=== PATIENT | female | born 1975 | race Caucasian/White ===

== ENCOUNTER 2016-07-19 21:31 | Emergency (ER) | payer SELFPAY ==
[2016-07-19] MEDS ORDERED: NORCO, ANEXSIA 5/325MG TABLET (HYDROcodone/ACETAMINOPHEN) As Ordered ONE (22:28)
[2016-07-19] MEDS ORDERED: CLINDAMYCIN 150 MG CAP As Ordered ONE (22:29)
--- NOTE | 2016-07-19 22:33 | EDDOCDS ---
Nurse's Notes [facility] Name: Caroline Alexis Age: 40 yrs Sex: Female : 1975 Arrival Date: 07/19/2016 Time: 21:31 Bed I10 / 23 Private MD: [facility] - Adults Diagnosis: Dental caries-likely developing abscess Presentation: 07/19 21:40 Presenting complaint: Patient states: broken tooth on lower left, facial swelling, now [facility] starting to feel numb along jawline, started yesterday. Adult Sepsis Screening: The patient does not have new or worsening altered mentation. Patient's respiratory rate is less than 22. Systolic blood pressure is greater than 100. Patient has a qSOFA score of 0- Negative Sepsis Screen. Suicide/Homicide risk assessment- the patient denies having any suicidal and/or homicidal ideations and does not present with any other emotional, behavioral or mental health complaints. Status: Patient is not a director career services or dependent. Transition of care: patient was not received from another setting of care. 21:40 Acuity: RAJESH Level 4 [facility] 21:40 Method Of Arrival: Walkin/Carried/Asstd [facility] Triage Assessment: 21:46 General: Appears in no apparent distress, Behavior is appropriate for age, cooperative. [facility] Pain: Location: mouth Pain currently is 8 out of 10 on a pain scale. HIV screening NA for this visit Offered previously. Respiratory: Airway is patent Respiratory effort is even, unlabored, Respiratory pattern is regular, symmetrical. Derm: Skin is pink, warm & dry. 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 Tylenol 500 mg Oral tab 2 tabs every 6 hours (Last dose: 07/19/2016 14:00) - PMHx: Asthma; - PSHx: Tubal ligation; Foot surgery x 2; Gastric Bypass; - Social history: Smoking status: Patient states former smoker of tobacco. No barriers to communication noted. - Family history: Not pertinent. - : The pt / caregiver states he / she is not on anticoagulants. Home medication list is obtained from the patient. - Exposure Risk Screening:: None identified. Screenin:30 Screening information is obtained from the patient. Fall risk: No risks identified. slm Assistance ADL's: requires no assistance with activities of daily living. Abuse/DV Screen: The patient / caregiver reports he/she is: not in a situation that causes fear, pain or injury. Nutritional screening: No deficits noted. Advance Directives: Currently, there is no health care proxy. There is no active DNR order. There is no living will. There is no Power of Insurance Account Manager. Advance directive information has not previously been placed in an [facility] medical record. Further advance directive information is declined. home support is adequate. Assessment: 22:30 General: Appears in no apparent distress, Behavior is cooperative. Pain: Location: slm mouth. Derm: Swollen area noted on left jaw. Vital Signs: 21:33 BP 147 / 87; Pulse 82; Resp 18 S; Temp 97.1(O); Pulse Ox 100% on R/A; Weight 97.52 kg gr2 (R); Height 5 ft. 10 in. (177.80 cm) (R); Pain 8/10; 21:33 Body Mass Index 30.85 (97.52 kg, 177.80 cm) gr2 Vitals: 21:33 Log In Time: July 19, 2016 at 21:33. gr2 ED Course: 21:33 Patient visited by Onofre Ortiz. gr2 21:33 [facility] is Private Physician. gr2 21:33 Patient moved to Waiting gr2 21:34 Patient visited by Onofre Ortiz. gr2 21:34 Patient moved to Pre RCE gr2 21:42 Triage Initiated [facility] 21:50 [facility] 21[facility]50 Patient moved to I10 / 23 [facility] 22:03 Patient visited by Petra Marroquin FNP. le 22:03 Patient visited by Petra Marroquin FNP. le 22:15 [facility] is Referral Physician. le 22:31 The patient / caregiver is instructed regarding the plan of care and ED course. Patient slm has correct armband on for positive identification. Bed in low position. Call light in reach. Side rails up X 1. 22:31 No IV's were initiated during this patient's visit. No procedures done that require slm assistance. 22:32 Patient visited by Deborah Medrano LPN. slm Administered Medications: 22:32 Drug: Clindamycin 300 mg [clindamycin 150 mg capsule (2 caps)] Route: PO; mb9 22:32 Drug: HYDROcodone-acetaminophen 1 tabs [hydrocodone 5 mg-acetaminophen 325 mg tablet (1 mb9 tabs)] Route: PO; 22:32 Follow up: Response: Confirmed pt not driving. mb9 Order Results: There are currently no results for this order. Outcome: 22:16 Discharge ordered by Provider. le 22:31 Discharge Assessment: Patient awake, alert and oriented x 3. No cognitive and/or slm functional deficits noted. Patient verbalized understanding of disposition instructions. patient administered narcotics -. The following High Risk Discharge criteria are identified: None. Discharged to home ambulatory. Condition: good. Discharge instructions given to patient, Instructed on discharge instructions, follow up and referral plans. medication usage, Demonstrated understanding of instructions, medications, Pt was receptive of discharge instructions/ teaching. Prescriptions given X 1. No special radiology studies were completed. Property :Personal belongings accompany Pt. 22:32 Discharge Assessment: patient administered narcotics - yes. Pt provided with safe slm discharge. 22:33 Patient left the ED. slm Signatures: Petra Marroquin, SUPERVISOR COIL WINDING SUPERVISOR COIL WINDING Harriet Olmos,RN RN [facility] Onofre Ortiz gr2 Deborah Medrano LPN LPN [facility] Marvin SparksRN RN mb9 MTDD
--- NOTE | 2016-07-21 23:33 | EDDOCDS ---
Physician Documentation [facility] Name: Caroline Alexis Age: 40 yrs Sex: Female : 1975 Arrival Date: 07/19/2016 Time: 21:31 Bed I10 / 23 Private MD: [facility] - Adults Disposition: 07/19 22:21 Critical Care: Critical care not applicable. le Disposition: 07/19/16 22:16 Discharged to Home/Self Care. Impression: Dental caries - likely developing abscess. - Condition is Stable. - Discharge Instructions: Dental Abscess, Dental Pain. - Prescriptions for Clindamycin HCl 300 mg Oral Capsule - take 1 capsule by ORAL route every 8 hours; 30 capsule. - Medication Reconciliation, Local Pharmacy Hours, Dental Referral List form. - Follow up: [facility] - Adults; When: Call to arrange an appointment; Reason: Further pain management if needed. - Problem is new. - Symptoms are unchanged. - Notes: Return to the ED for worsening swelling, especially if unable to open your mouth more than the width of 2 fingers, difficulty swallowing/drooling, difficulty breathing, fever or you have any other concerns Historical: - Allergies: PENICILLINS; Keflex; Motrin; - Home Meds: 1. Tylenol 500 mg Oral tab 2 tabs every 6 hours (Last dose: 07/19/2016 14:00) - PMHx: Asthma; - PSHx: Tubal ligation; Foot surgery x 2; Gastric Bypass; - Social history: Smoking status: Patient states former smoker of tobacco. No barriers to communication noted. - Family history: Not pertinent. - : The pt / caregiver states he / she is not on anticoagulants. Home medication list is obtained from the patient. - Exposure Risk Screening:: None identified. 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 10 in. (177.80 cm) (R); Pain 8/10; 21:33 Body Mass Index 30.85 (97.52 kg, 177.80 cm) gr2 MDM: 22:09 Clindamycin 300 mg PO once ordered. le 22:09 HYDROcodone-acetaminophen 5 mg-325 mg 1 tabs PO once ordered. le 07/20 12:14 T-Sheet-- Draft Copy was scanned into [employer] and attached to record. gb Administered Medications: 07/19 22:32 Drug: Clindamycin 300 mg [clindamycin 150 mg capsule (2 caps)] Route: PO; mb9 22:32 Drug: HYDROcodone-acetaminophen 1 tabs [hydrocodone 5 mg-acetaminophen 325 mg tablet (1 mb9 tabs)] Route: PO; 22:32 Follow up: Response: Confirmed pt not driving. mb9 Signatures: Pao Myrick, Reg Reg Petra Hernandez, MEDICAL LAB DIRECTOR MEDICAL LAB DIRECTOR Harriet Olmos RN RN Deborah Kwan LPN LPN slm Belles, Michael RN mb9 The chart was reviewed and I authenticate all verbal orders and agree with the evaluation and treatment provided.Attachments: 07/20 12:14 T-Sheet-- Draft Copy gb Chart Complete MTDD
--- NOTE | 2016-07-21 23:33 | EDDOCDS ---
Nurse's Notes [facility] Name: Caroline Alexis Age: 40 yrs Sex: Female : 1975 Arrival Date: 07/19/2016 Time: 21:31 Bed I10 / 23 Private MD: [facility] - Adults Diagnosis: Dental caries-likely developing abscess Presentation: 07/19 21:40 Presenting complaint: Patient states: broken tooth on lower left, facial swelling, now [facility] starting to feel numb along jawline, started yesterday. Adult Sepsis Screening: The patient does not have new or worsening altered mentation. Patient's respiratory rate is less than 22. Systolic blood pressure is greater than 100. Patient has a qSOFA score of 0- Negative Sepsis Screen. Suicide/Homicide risk assessment- the patient denies having any suicidal and/or homicidal ideations and does not present with any other emotional, behavioral or mental health complaints. Status: Patient is not a elevator service technician or dependent. Transition of care: patient was not received from another setting of care. 21:40 Acuity: RAJESH Level 4 [facility] 21:40 Method Of Arrival: Walkin/Carried/Asstd [facility] Triage Assessment: 21:46 General: Appears in no apparent distress, Behavior is appropriate for age, cooperative. [facility] Pain: Location: mouth Pain currently is 8 out of 10 on a pain scale. HIV screening NA for this visit Offered previously. Respiratory: Airway is patent Respiratory effort is even, unlabored, Respiratory pattern is regular, symmetrical. Derm: Skin is pink, warm & dry. 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 Tylenol 500 mg Oral tab 2 tabs every 6 hours (Last dose: 07/19/2016 14:00) - PMHx: Asthma; - PSHx: Tubal ligation; Foot surgery x 2; Gastric Bypass; - Social history: Smoking status: Patient states former smoker of tobacco. No barriers to communication noted. - Family history: Not pertinent. - : The pt / caregiver states he / she is not on anticoagulants. Home medication list is obtained from the patient. - Exposure Risk Screening:: None identified. Screenin:30 Screening information is obtained from the patient. Fall risk: No risks identified. slm Assistance ADL's: requires no assistance with activities of daily living. Abuse/DV Screen: The patient / caregiver reports he/she is: not in a situation that causes fear, pain or injury. Nutritional screening: No deficits noted. Advance Directives: Currently, there is no health care proxy. There is no active DNR order. There is no living will. There is no Power of Broker Associate. Advance directive information has not previously been placed in an [facility] medical record. Further advance directive information is declined. home support is adequate. Assessment: 22:30 General: Appears in no apparent distress, Behavior is cooperative. Pain: Location: slm mouth. Derm: Swollen area noted on left jaw. Vital Signs: 21:33 BP 147 / 87; Pulse 82; Resp 18 S; Temp 97.1(O); Pulse Ox 100% on R/A; Weight 97.52 kg gr2 (R); Height 5 ft. 10 in. (177.80 cm) (R); Pain 8/10; 21:33 Body Mass Index 30.85 (97.52 kg, 177.80 cm) gr2 Vitals: 21:33 Log In Time: July 19, 2016 at 21:33. gr2 ED Course: 21:33 Patient visited by Onofre Ortiz. gr2 21:33 [facility] is Private Physician. gr2 21:33 Patient moved to Waiting gr2 21:34 Patient visited by Onofre Ortiz. gr2 21:34 Patient moved to Pre RCE gr2 21:42 Triage Initiated [facility] 21:50 [facility] 21:50 Patient moved to I10 / 23 [facility] 22:03 Patient visited by Petra Marroquin FNP. le 22:03 Patient visited by Petra Marroquin FNP. le 22:15 [facility] is Referral Physician. le 22:31 The patient / caregiver is instructed regarding the plan of care and ED course. Patient slm has correct armband on for positive identification. Bed in low position. Call light in reach. Side rails up X 1. 22:31 No IV's were initiated during this patient's visit. No procedures done that require slm assistance. 22:32 Patient visited by Deborah Medrano LPN. slm 07/20 12:14 T-Sheet-- Draft Copy was scanned into [employer] and attached to record. gb Administered Medications: 07/19 22:32 Drug: Clindamycin 300 mg [clindamycin 150 mg capsule (2 caps)] Route: PO; mb9 22:32 Drug: HYDROcodone-acetaminophen 1 tabs [hydrocodone 5 mg-acetaminophen 325 mg tablet (1 mb9 tabs)] Route: PO; 22:32 Follow up: Response: Confirmed pt not driving. mb9 Order Results: There are currently no results for this order. Outcome: 22:16 Discharge ordered by Provider. le 22:31 Discharge Assessment: Patient awake, alert and oriented x 3. No cognitive and/or slm functional deficits noted. Patient verbalized understanding of disposition instructions. patient administered narcotics -. The following High Risk Discharge criteria are identified: None. Discharged to home ambulatory. Condition: good. Discharge instructions given to patient, Instructed on discharge instructions, follow up and referral plans. medication usage, Demonstrated understanding of instructions, medications, Pt was receptive of discharge instructions/ teaching. Prescriptions given X 1. No special radiology studies were completed. Property :Personal belongings accompany Pt. 22:32 Discharge Assessment: patient administered narcotics - yes. Pt provided with safe slm discharge. 22:33 Patient left the ED. slm Signatures: Pao Myrick, Reg Reg Petra Hernandez, REFRIGERATING ENGINEER HEAD REFRIGERATING ENGINEER HEAD Harriet Olmos,RN RN [facility] Onofre Ortiz gr2 Deborah Medrano LPN LPN Marvin Ham,RN RN mb9 Chart Complete MTDD
--- NOTE | 2016-07-21 23:33 | EDDOCDS ---
[facility]ation [facility] Name: Caroline Alexis Age: 40 yrs Sex: Female : 1975 Arrival Date: 07/19/2016 Time: 21:31 Bed I10 / 23 Private MD: [facility] - Adults Disposition: 07/19 22:21 Critical Care: Critical care not applicable. le Disposition: 07/19/16 22:16 Discharged to Home/Self Care. Impression: Dental caries - likely developing abscess. - Condition is Stable. - Discharge Instructions: Dental Abscess, Dental Pain. - Prescriptions for Clindamycin HCl 300 mg Oral Capsule - take 1 capsule by ORAL route every 8 hours; 30 capsule. - Medication Reconciliation, Local Pharmacy Hours, Dental Referral List form. - Follow up: [facility] - Adults; When: Call to arrange an appointment; Reason: Further pain management if needed. - Problem is new. - Symptoms are unchanged. - Notes: Return to the ED for worsening swelling, especially if unable to open your mouth more than the width of 2 fingers, difficulty swallowing/drooling, difficulty breathing, fever or you have any other concerns Historical: - Allergies: PENICILLINS; Keflex; Motrin; - Home Meds: 1. Tylenol 500 mg Oral tab 2 tabs every 6 hours (Last dose: 07/19/2016 14:00) - PMHx: Asthma; - PSHx: Tubal ligation; Foot surgery x 2; Gastric Bypass; - Social history: Smoking status: Patient states former smoker of tobacco. No barriers to communication noted. - Family history: Not pertinent. - : The pt / caregiver states he / she is not on anticoagulants. Home medication list is obtained from the patient. - Exposure Risk Screening:: None identified. 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 10 in. (177.80 cm) (R); Pain 8/10; 21:33 Body Mass Index 30.85 (97.52 kg, 177.80 cm) gr2 MDM: 22:09 Clindamycin 300 mg PO once ordered. le 22:09 HYDROcodone-acetaminophen 5 mg-325 mg 1 tabs PO once ordered. le 07/20 12:14 T-Sheet-- Draft Copy was scanned into [employer] and attached to record. gb Administered Medications: 07/19 22:32 Drug: Clindamycin 300 mg [clindamycin 150 mg capsule (2 caps)] Route: PO; mb9 22:32 Drug: HYDROcodone-acetaminophen 1 tabs [hydrocodone 5 mg-acetaminophen 325 mg tablet (1 mb9 tabs)] Route: PO; 22:32 Follow up: Response: Confirmed pt not driving. mb9 Signatures: Pao Myrick, Reg Reg Petra Hernandez, OTR TANKER TRUCK DRIVER OTR TANKER TRUCK DRIVER Harriet Olmos RN RN Deborah Kwan LPN LPN slm Belles, Michael RN mb9 The chart was reviewed and I authenticate all verbal orders and agree with the evaluation and treatment provided.Attachments: 07/20 12:14 T-Sheet-- Draft Copy gb Chart Complete MTDD
== END 2016-07-19 22:33 | disposition home or self-care (01) ==
LOC: M ED 21:31
DX: K02.9 Dental caries, unspecified (principal); K04.7 Periapical abscess without sinus; J45.909 Unspecified asthma, uncomplicated; Z98.84 Bariatric surgery status; Z87.891 Personal history of nicotine dependence; Z88.0 Allergy status to penicillin; Z88.5 Allergy status to narcotic agent; Z88.6 Allergy status to analgesic agent

== ENCOUNTER 2016-11-21 14:00 | Emergency (ER) | payer SELFPAY ==
[~2016-11-21] VITALS: Ht 175.3 cm; Wt 99.8 kg
[2016-11-21 14:01] VITALS: BP 163/98
--- NOTE | 2016-11-21 14:27 | ED PDOC ---
Post-Departure Follow-Up PT REPEATEDLY STATES SHE USED TO "RUN A DENTAL OFFICE AND I'M SO EMBARRASSED BY MY MOUTH RIGHT NOW." C/O LEFT LOWER JAW/DENTAL PAIN FOR THE PAST COUPLE DAYS. NO FEVER, DRAINAGE/DISCHARGE. STATES SHE CANNOT AFFORD EXPENSIVE ANTIBIOTICS AND WANTS "THE CHEAPER ONES." WHEN ASKED WHAT HER ALLERGY IS TO THE PENICILLINS , PT STATES SHE DOES NOT KNOW, "BUT I TRIED KEFLEX A FEW YEARS AGO AND IT MADE ME ITCH." ADVISED WE NEED TO PRESCRIBE THE CORRECT ANTIBIOTICS FOR HER INFECTION AND THEY MAY BE EXPENSIVE. LINDA ANAND PA-C November 21, 2016 14:27
[2016-11-21] MEDS ORDERED: ACET30TAB PO (14:32)
[2016-11-21] MEDS ORDERED: MAGICMW MT (14:32)
[2016-11-21] MEDS ORDERED: CLEO300C2 PO (14:32)
== END 2016-11-21 14:54 | disposition home or self-care (01) ==
LOC: M ED 14:31
DX: K04.7 Periapical abscess without sinus (principal); R51 Headache; Z87.891 Personal history of nicotine dependence; Z88.0 Allergy status to penicillin; Z88.8 Allergy status to other drugs, medicaments and biological substances